=== PATIENT | male | born 1945 | race Caucasian/White ===

== ENCOUNTER → 2019-02-15 | Outpatient (REF) ==
[~2019-02-15] MED LIST: ASPIRIN E.C. 8181 MG PO; NO HOME MEDICATIONS; TOPROL XL 25MG25 MG PO
[2019-02-15 16:58] LABS: THYROID STIMULATING HORMONE 1.02 uIU/mL (0.465-4.680)
[2019-02-15 17:41] LABS: PSA-TOTAL 4.85 ng/mL (0-4)
== END ==
LOC: ZLAB.WCH 15:59
PROVIDERS: Internal Medicine
DX: Z01.89 Encounter for other specified special examinations (principal)
CPT/HCPCS: G0103

== ENCOUNTER → 2019-02-16 | Outpatient (REF) | LOC: ZLAB.WCH 15:52 | DX: Z01.89 Encounter for other specified special examinations (principal) ==

== ENCOUNTER → 2019-10-03 | Outpatient (CLI) | payer MEDICARE, BC | LOC: COL.RAD 12:19 | DX: M79.89 Other specified soft tissue disorders (principal) ==